=== PATIENT | male | born 1995 | race Caucasian/White ===

== ENCOUNTER 2023-12-03 12:51 | Emergency (ER) | payer OTHER ==
[2023-12-03] MEDS: Cetirizine 10 MG Tab PO STA (14:09)
[2023-12-03] MEDS: Famotidine 20 MG Tab PO STA (14:09)
[2023-12-03] MEDS: Triamcinolone Acetonide 40 MG/ML 1 ML SDV INJECT STA (14:09)
== END 2023-12-03 14:57 | disposition home or self-care (01) ==
LOC: MW.ED 12:51
DX: H10.13 Acute atopic conjunctivitis, bilateral (principal); Z75.8 Other problems related to medical facilities and other health care; Z88.0 Allergy status to penicillin
CPT/HCPCS: 99283; A9270; J3301